=== PATIENT | female | born 1990 | race Caucasian/White ===

== ENCOUNTER 2020-03-25 09:05 | Observation (INO) | payer BC, OTHER ==
[2020-03-25] MEDS ORDERED: Sodium Chloride 0.9% 10 ML Syringe FLUSH PRN (09:21)
[2020-03-25] MEDS ORDERED: Sodium Chloride 0.9% 2.5 ML Syringe FLUSH PRN (09:21)
[2020-03-25] MEDS ORDERED: Sodium Chloride 0.9% 10 ML SDV IV PRN (09:21)
[2020-03-25] MEDS ORDERED: Aspirin 81 MG Tab.Chew PO ONE (09:21)
--- NOTE | 2020-03-25 09:21 | EDM.PDOC ---
ED HPI GENERAL MEDICAL PROBLEM - General Chief Complaint: Neuro Symptoms/Deficits Stated Complaint: STOKE CODE Time Seen by Provider: 03/25/20 09:20 Source of Information: Reports: Patient History Limitations: Reports: No Limitations - History of Present Illness INITIAL COMMENTS - FREE TEXT/NARRATIVE: There is a very pleasant 30-year-old female with a past medical history of hyp othyroidism on levothyroxine and anxiety presenting with concern for stroke symptoms. Around 8:10 AM this morning, the patient states that she tried to get up off the couch and felt like she was falling to the right side and had to brace herself because her balance was severely affected. She called her spouse and talk to him on the phone and he stated that it sounded like she was not speaking clearly. The patient states that when this was occurring, she felt like her lip was numb and it was difficult to form words. These symptoms improved and essentially subsided before she arrived in the emergency department. Here in the ER, she complains of feeling shaky but otherwise denies any present facial or extremity numbness or weakness, headache, visual disturbance, trouble speaking or swallowing, or problems with coordination. No history of recent head trauma. Denies history of CVA or TIA, atrial fibrillation, hypertension, hyperlipidemia, or diabetes mellitus. No anticoagulant or antiplatelet medication usage. Patient was cleared as a stroke code in triage and was immediately roomed when she arrived to the ER. ROS: A 10-point review of systems was negative, except as noted in the HPI (or in the ROS section of this note). Past medical history: Reviewed, no additional pertinent history. Surgical history: Reviewed in system, no additional pertinent history. Social history: Reviewed in system, no additional pertinent history. Family history: Reviewed in system, no additional pertinent history. PHYSICAL EXAM Vital signs reviewed. Nursing notes reviewed. Constitutional: Awake, alert, non-distressed. Head: Normocephalic, atraumatic. Eyes: EOMI, conjunctiva normal, no discharge, no scleral icterus. Pupils 3 mm bilaterally. Ears, Nose, Throat: External ears and nose normal, moist oral mucosa. Cardiovascular: 2+ radial pulse, capillary refill less than 2 seconds. Pulmonary: normal work of breathing, no accessory muscle use. Abdomen/GI: Soft, nontender, nondistended, no guarding or rigidity, no masses. Musculoskeletal: No deformities. Integumentary: Appropriate color for ethnicity, warm, dry, no pallor or jaundice, no rash. Neurologic: Awake, alert, and oriented x3. Cranial nerves II through XII intact. No facial droop or dysarthria. No temporal artery tenderness. Supple neck with normal range of motion. No pronator drift. Normal [id number]. Patient does have impaired coordination with her right lower extremity when asked to test [id number]. No dysdiadochokinesia. 5/5 strength in all extremities. Sensation intact to light touch x4. Negative Romberg. Normal gait. Normal visual kohli, no field cuts. Able to sit, stand, and ambulate without assistance. Psychiatric: Appropriate mood and affect, normal thought process. - Related Data Allergies Allergy/AdvReac Type Severity Reaction Status Date / Time No Known Allergies Allergy Verified 03/25/20 09:40 Home Meds: Home Meds ClonazePAM [KlonoPIN] 0.5 mg PO 03/25/20 [History] Levothyroxine [Synthroid] 03/25/20 [History] traZODone HCl [Trazodone HCl] 03/25/20 [History] ED ROS GENERAL - Review of Systems Review Of Systems: See Below ED EXAM, NEURO - Physical Exam Exam: See Below EKG INTERPRETATION EKG Interpretation Comments: 12-Lead ECG Interpretation Acquired: 9:30 AM Rhythm: Sinus rhythm Rate: 93 bpm [place]: Normal Intervals: Normal Ectopy: None RV Strain: No obvious RV strain pattern. ST Segments/T-Waves: T wave inversions lead III Acute Ischemic Changes: None apparent Interpretation: No STEMI Course - Vital Signs Text/Narrative:: Patient hemodynamically stable, afebrile, well-appearing, looks nontoxic. Differential diagnosis includes but is not limited to: CVA, TIA, neuropathy, [employer] tumor, intracranial hemorrhage, MS, demyelinating disease, electrolyte disturbance, thyroid disease, neuropathy, etc. 0815: Stroke code cleared from triage, patient was immediately roomed and work- up was started. By my examination, the only deficit I appreciated some clumsiness with the right lower extremity when testing [id number]. Otherwise I see no focal neurologic deficits, her NIH stroke scale is 1. 1101: Nurse performed full NIH stroke scale with a score of 0. By my examination she continues to have some very mild clumsiness with her right lower extremity when testing [id number]. Her laboratory testing is essentially negative. Troponin negative, electrolytes and renal function normal. Cell lines are normal. Radiology reads of her stroke series CTs are negative. Her story is concerning for a TIA at a minimum. She was given full-dose aspirin. I would favor admission to the hospital overnight for further stroke work-up including MRI, neurology consultation, and likely echocardiogram. Patient is agreeable. I spoke with the hospitalist Dr. Toby Cobian who agrees to admit. Last Recorded V/S: Last Vital Signs Temp 36.6 C 03/25/20 09:34 Pulse 96 03/25/20 09:34 Resp 18 03/25/20 09:34 BP 121/79 03/25/20 09:34 Pulse Ox 98 03/25/20 09:34 - Orders/Labs/Meds Orders: Active Orders 24 hr Category Date Time Status Admission Status [Patient Status] [ADT] Stat ADT 03/25/20 10:32 Active Assess Neurological Status [RC] CONTINUOUS Care 03/25/20 09:21 Active Blood Glucose Check, Bedside [RC] STAT Care 03/25/20 09:21 Active Cardiac Monitoring [RC] CONTINUOUS Care 03/25/20 09:21 Active Communication Order [RC] STAT Care 03/25/20 09:21 Active EKG Documentation Completion [RC] STAT Care 03/25/20 09:21 Active Height and Weight [RC] UPON Care 03/25/20 09:21 Active NIH Stroke Scale [RC] STAT Care 03/25/20 09:21 Active Nursing Bedside Swallow Screen [RC] STAT Care 03/25/20 09:21 Active Brain w wo Cont [MR] Urgent Exams 03/25/20 11:33 Ordered Sodium Chloride 0.9% [Normal Saline] Med 03/25/20 09:21 Active 10 ml IV ASDIRECTED PRN Sodium Chloride 0.9% [Saline Flush] Med 03/25/20 09:21 Active 10 ml FLUSH ASDIRECTED PRN Sodium Chloride 0.9% [Saline Flush] Med 03/25/20 09:21 Active 2.5 ml FLUSH ASDIRECTED PRN Peripheral IV Insertion Adult [OM.PC] Stat Oth 03/25/20 09:21 Ordered Peripheral IV Insertion Adult [OM.PC] Stat Ot 03/25/20 09:21 Ordered Medication Orders Sodium Chloride (Saline Flush) 10 ml FLUSH ASDIRECTED PRN PRN Reason: Keep Vein Open Last Admin: 03/25/20 09:56 Dose: 10 ml Documented by: ASHA Sodium Chloride (Saline Flush) 2.5 ml FLUSH ASDIRECTED PRN PRN Reason: Keep Vein Open Last Admin: 03/25/20 09:56 Dose: 2.5 ml Documented by: ASHA Sodium Chloride (Normal Saline) 10 ml IV ASDIRECTED PRN PRN Reason: IV Use Labs: Laboratory Tests 03/25/20 03/25/20 03/25/20 Range/Units 09:10 09:10 09:10 WBC 7.43 (4.0-11.0) K/uL RBC 4.94 (4.30-5.90) M/uL Hgb 14.3 (12.0-16.0) g/dL Hct 42.8 (36.0-46.0) % MCV 86.6 (80.0-98.0) fL MCH 28.9 (27.0-32.0) pg MCHC 33.4 (31.0-37.0) g/dL RDW Std Deviation 41.5 (28.0-62.0) fl RDW Coeff of Tl 13 (11.0-15.0) % Plt Count 239 (150-400) K/uL MPV 8.40 (7.40-12.00) fL Neut % (Auto) 54.8 (48.0-80.0) % Lymph % (Auto) 34.5 (16.0-40.0) % [place] % (Auto) 6.2 (0.0-15.0) % Eos % (Auto) 4.4 (0.0-7.0) % Baso % (Auto) 0.1 (0.0-1.5) % Neut # (Auto) 4.1 (1.4-5.7) K/uL Lymph # (Auto) 2.6 H (0.6-2.4) K/uL [place] # (Auto) 0.5 (0.0-0.8) K/uL Eos # (Auto) 0.3 (0.0-0.7) K/uL Baso # (Auto) 0.0 (0.0-0.1) K/uL Nucleated RBC % 0.0 /100WBC Nucleated RBCs # 0 K/uL INR 1.00 APTT 26.2 (18.6-31.3) SEC Sodium 139 (136-145) mmol/L Potassium 3.6 (3.5-5.1) mmol/L Chloride 103 (98-107) mmol/L Carbon Dioxide 22.9 (21.0-32.0) mmol/L BUN 8 (7.0-18.0) mg/dL Creatinine 0.8 (0.6-1.0) mg/dL Est Cr Clr Drug Dosing 74.53 mL/min Estimated GFR (MDRD) > 60.0 ml/min Glucose 99 (74-106) mg/dL Calcium 9.0 (8.5-10.1) mg/dL Total Bilirubin 0.5 (0.2-1.0) mg/dL AST 14 L (15-37) IU/L ALT 21 (14-63) IU/L Alkaline Phosphatase 96 (46-116) U/L Troponin I < 0.050 (0.000-0.056) ng/mL Total Protein 7.6 (6.4-8.2) g/dL Albumin 3.8 (3.4-5.0) g/dL Globulin 3.8 (2.6-4.0) g/dL Albumin/Globulin Ratio 1.0 (0.9-1.6) HCG, Qual (NEG) SARS-CoV-2 RNA (AYESHA) (NEGATIVE) 03/25/20 03/25/20 Range/Units 09:10 11:12 WBC (4.0-11.0) K/uL RBC (4.30-5.90) M/uL Hgb (12.0-16.0) g/dL Hct (36.0-46.0) % MCV (80.0-98.0) fL MCH (27.0-32.0) pg MCHC (31.0-37.0) g/dL RDW Std Deviation (28.0-62.0) fl RDW Coeff of Tl (11.0-15.0) % Plt Count (150-400) K/uL MPV (7.40-12.00) fL Neut % (Auto) (48.0-80.0) % Lymph % (Auto) (16.0-40.0) % [place] % (Auto) (0.0-15.0) % Eos % (Auto) (0.0-7.0) % Baso % (Auto) (0.0-1.5) % Neut # (Auto) (1.4-5.7) K/uL Lymph # (Auto) (0.6-2.4) K/uL [place] # (Auto) (0.0-0.8) K/uL Eos # (Auto) (0.0-0.7) K/uL Baso # (Auto) (0.0-0.1) K/uL Nucleated RBC % /100WBC Nucleated RBCs # K/uL INR APTT (18.6-31.3) SEC Sodium (136-145) mmol/L Potassium (3.5-5.1) mmol/L Chloride (98-107) mmol/L Carbon Dioxide (21.0-32.0) mmol/L BUN (7.0-18.0) mg/dL Creatinine (0.6-1.0) mg/dL Est Cr Clr Drug Dosing mL/min Estimated GFR (MDRD) ml/min Glucose (74-106) mg/dL Calcium (8.5-10.1) mg/dL Total Bilirubin (0.2-1.0) mg/dL AST (15-37) IU/L ALT (14-63) IU/L Alkaline Phosphatase (46-116) U/L Troponin I (0.000-0.056) ng/mL Total Protein (6.4-8.2) g/dL Albumin (3.4-5.0) g/dL Globulin (2.6-4.0) g/dL Albumin/Globulin Ratio (0.9-1.6) HCG, Qual NEGATIVE (NEG) SARS-CoV-2 RNA (AYESHA) NEGATIVE (NEGATIVE) Meds: Medications Generic Name Dose Route Start Last Admin Trade Name Freq PRN Reason Stop Dose Admin Sodium Chloride 10 ml 03/25/20 09:21 03/25/20 09:56 Saline Flush FLUSH 10 ml ASDIRECTED PRN Administration Keep Vein Open Sodium Chloride 2.5 ml 03/25/20 09:21 03/25/20 09:56 Saline Flush FLUSH 2.5 ml ASDIRECTED PRN Administration Keep Vein Open Sodium Chloride 10 ml 03/25/20 09:21 Normal Saline IV ASDIRECTED PRN IV Use Discontinued Medications Generic Name Dose Route Start Last Admin Trade Name Freq PRN Reason Stop Dose Admin Aspirin 324 mg 03/25/20 09:21 03/25/20 09:55 Aspirin PO 03/25/20 09:22 324 mg ONETIME ONE Administration Gadobenate Dimeglumine 20 ml 03/25/20 13:08 03/25/20 13:09 Multihance IVPUSH 03/25/20 13:09 14 ml ONETIME STA Administration Iopamidol 100 ml 03/25/20 09:44 03/25/20 09:44 Isovue Multipack-370 (76%) IVPUSH 03/25/20 09:45 100 ml ONETIME ONE Administration Departure - Departure Time of Disposition: 10:33 Disposition: Refer to Observation Condition: Good Clinical Impression: Stroke Qualifiers: CVA mechanism: unspecified Qualified Code(s): I63.9 - Cerebral infarction, unspecified - Discharge Information Sepsis Event Note (ED) - Focused Exam Vital Signs: Vital Signs Temp Pulse Resp BP Pulse Ox 03/25/20 09:34 36.6 C 96 18 121/79 98 - My Orders Last 24 Hours: My Active Orders 03/25/20 09:21 Assess Neurological Status [RC] CONTINUOUS Blood Glucose Check, Bedside [RC] STAT Cardiac Monitoring [RC] CONTINUOUS Communication Order [RC] STAT EKG Documentation Completion [RC] STAT Height and Weight [RC] UPON NIH Stroke Scale [RC] STAT Nursing Bedside Swallow Screen [RC] STAT Sodium Chloride 0.9% [Normal Saline] 10 ml IV ASDIRECTED PRN Sodium Chloride 0.9% [Saline Flush] 10 ml FLUSH ASDIRECTED PRN Sodium Chloride 0.9% [Saline Flush] 2.5 ml FLUSH ASDIRECTED PRN Peripheral IV Insertion Adult [OM.PC] Stat Peripheral IV Insertion Adult [OM.PC] Stat 03/25/20 10:32 Admission Status [Patient Status] [ADT] Stat - Assessment/Plan Last 24 Hours: My Active Orders 03/25/20 09:21 Assess Neurological Status [RC] CONTINUOUS Blood Glucose Check, Bedside [RC] STAT Cardiac Monitoring [RC] CONTINUOUS Communication Order [RC] STAT EKG Documentation Completion [RC] STAT Height and Weight [RC] UPON NIH Stroke Scale [RC] STAT Nursing Bedside Swallow Screen [RC] STAT Sodium Chloride 0.9% [Normal Saline] 10 ml IV ASDIRECTED PRN Sodium Chloride 0.9% [Saline Flush] 10 ml FLUSH ASDIRECTED PRN Sodium Chloride 0.9% [Saline Flush] 2.5 ml FLUSH ASDIRECTED PRN Peripheral IV Insertion Adult [OM.PC] Stat Peripheral IV Insertion Adult [OM.PC] Stat 03/25/20 10:32 Admission Status [Patient Status] [ADT] Stat
[2020-03-25] MEDS ORDERED: Iopamidol 755 MG/ML 500 ML Multipack Bottle IVPUSH ONE (09:44)
--- NOTE | 2020-03-25 09:51 | CT ---
INDICATION: Stroke COMPARISON: None TECHNIQUE: CT examination of the head was performed as axial sections without intravenous contrast. Images were obtained from the vertex of the skull through the skull base. Please note that all CT scans at this facility use dose modulation, iterative reconstruction, and/or weight-based dosing when appropriate to reduce radiation dose to as low as reasonably achievable. FINDINGS: The brain shows no sign of mass lesion, mass effect, hemorrhage, or edema. The ventricles and sulci are normal in appearance for the patient`s age. The visualized portions of the orbits are normal in appearance. The osseous structures are normal in their appearance with no sign of abnormality in the skull base or calvarium. IMPRESSION: Normal unenhanced head CT. Please note that all CT scans at this facility use dose modulation, iterative reconstruction, and/or weight-based dosing when appropriate to reduce radiation dose to as low as reasonably achievable. Dictated by Tres Young MD @ Mar 25 2020 9:49AM Signed by Dr. Tres Young @ Mar 25 2020 9:50AM
--- NOTE | 2020-03-25 10:12 | CT ---
INDICATION: Acute stroke. TECHNIQUE: After standard noncontrast head CT, high resolution axial CT images acquired through the head and neck following rapid intravenous administration of iodinated contrast. Multiplanar MIPS of cranial and cervical vasculature performed. FINDINGS: Noncontrast head CT: There is no intracranial hemorrhage or fluid collection. The mcclain-white matter differentiation is maintained. The ventricles are of normal morphology. The basal cisterns are clear. CTA head: There is normal filling of the intracranial vasculature; i.e. there is no large vessel occlusion or intracranial stenosis. There is no cerebral aneurysm or evidence for vascular malformation. CTA neck: There is no carotid or vertebral artery stenosis or dissection. There is an incidental multinodular thyroid gland. IMPRESSION: Incidental multinodular thyroid gland. Otherwise unremarkable CT head, CTA head and neck. Nura Lemons MD [employer] [facility] Please note that all CT scans at this facility use dose modulation, iterative reconstruction, and/or weight-based dosing when appropriate to reduce radiation dose to as low as reasonably achievable. Dictated by Nura Lemons MD @ Mar 25 2020 10:52AM Signed by Dr. Nura Lemons @ Mar 25 2020 11:09AM
[2020-03-25 10:14] LABS: BLOOD UREA NITROGEN,BUN 8 mg/dL (7.0-18.0); CARBON DIOXIDE,CO2 22.9 mmol/L (21.0-32.0); CHLORIDE,CL 103 mmol/L (98-107); GLUCOSE RANDOM 99 mg/dL (74-106); POTASSIUM,K 3.6 mmol/L (3.5-5.1); SODIUM,NA 139 mmol/L (136-145)
--- NOTE | 2020-03-25 13:01 | PCM.HP.2 ---
H&P History of Present Illness - General Date of Service: 03/25/20 Admit Problem/Dx: Admission Diagnosis/Problem Admission Diagnosis/Problem CVA, Cerebrovascular accident Source of Information: Patient, Old Records (clinic) History Limitations: Reports: No Limitations - History of Present Illness Initial Comments - Free Text/Narative: This 30-year-old female with past medical history of hypothyroidism and anxiety presented to the ER today with concerns of right-sided weakness and balance being off. She reports this morning she was try to get up off the couch and felt weak if she was falling to the right. She called her who felt that her speech was not clear and more slurred. She reports during this time she felt like her lip was numb and it was difficult to form words. Upon arriving to the ER symptoms had essentially subsided. ER physician noted some clumsiness with the right leg performing [id number] movements. She reports now shimmering lights in her R peripheral vision and a mild headache that is just starting. She denies any focal neurological deficits no numbness or weakness trouble speaking or swallowing and no troubles with coordination now. Denies any recent head trauma. No chest pain shortness of breath or abdominal pain. No urinary concerns. No diarrhea or constipation. Denies any history of CVA or TIA no history of, atrial fibrillation hypertension or diabetes. reports history of migraines, only has taken Ibuprofen Excedrin for abortive relief. No history of seizures. Typically migraines come around menses, which she had 1 week ago, no timing is abnormal for her regular migraine. Reports mother has had seizures and significant migraine history. In the ER lab work was essentially normal. COVID swab negative head CT done in the ER negative CTA head and neck are also negative for any intracranial abnormalities. CT a of the neck did note a multinodular thyroid. Will need outpatient follow-up for this. EKG SR with no ischemic changes. She will be admitted for observation TIA. - Related Data Allergies/Adverse Reactions: Allergies Allergy/AdvReac Type Severity Reaction Status Date / Time No Known Allergies Allergy Verified 03/25/20 09:40 Home Medications: Home Meds ClonazePAM [KlonoPIN] 0.5 mg PO DAILY PRN 03/25/20 [History] Levothyroxine [Synthroid] 50 mcg PO BTNUNITS 03/25/20 [History] Melatonin 3 mg PO BEDTIME #30 tablet 03/25/20 [Rx] traZODone HCl [Trazodone HCl] 50 mg PO BEDTIME 03/25/20 [History] Past Medical History Respiratory History: Reports: Asthma Psychiatric History: Reports: Anxiety Endocrine/Metabolic History: Reports: Hypothyroidism - Infectious Disease History Infectious Disease History: Reports: Chicken Pox Social & Family History - Family History Family Medical History: Noncontributory Neurological: Reports: Other (See Below) Other Neurological Family History: fibromyalgia Psychiatric: Reports: Anxiety, Bipolar, Depression Oncologic: Reports: Brain, Other (See Below) Other Oncologic Family History: pitituritary gland - Tobacco Use Smoking Status *Q: Never Smoker Second Hand Smoke Exposure: No - Caffeine Use Caffeine Use: Reports: Coffee, Soda, Tea - Recreational Drug Use Recreational Drug Use: No H&P Review of Systems - Review of Systems: Review Of Systems: See Below General: Reports: No Symptoms. Denies: Chills, Malaise, Weakness HEENT: Reports: Visual Changes (shimmering lights) Pulmonary: Reports: No Symptoms. Denies: Shortness of Breath Cardiovascular: Reports: No Symptoms. Denies: Chest Pain, Lightheadedness Gastrointestinal: Reports: Difficulty Swallowing. Denies: Black Stool, Bloody Stool, Nausea, Vomiting Genitourinary: Reports: No Symptoms. Denies: Dysuria, Frequency Skin: Reports: No Symptoms Neurological: Reports: No Symptoms Hematologic/Lymphatic: Reports: No Symptoms Immunologic: Reports: No Symptoms Exam - Exam Exam: See Below - Vital Signs Vital Signs: Last Vital Signs Temp 97.8 F 03/25/20 09:34 Pulse 96 03/25/20 09:34 Resp 18 03/25/20 09:34 BP 121/79 03/25/20 09:34 Pulse Ox 98 03/25/20 09:34 Weight: 71 kg - Exam General: Alert, Oriented, Cooperative HEENT: Conjunctiva Clear, Mucosa Moist & [place], Pupils Equal, Pupils Reactive, PERRLA Neck: Supple, Trachea Midline Lungs: Clear to Auscultation, Normal Respiratory Effort Cardiovascular: Regular Rate, Regular Rhythm GI/Abdominal Exam: Normal Bowel Sounds, Soft, Non-Tender Extremities: Normal Inspection, Normal Range of Motion, Non-Tender, No Pedal Edema Neurological: Cranial Nerves Intact, Reflexes Equal Bilateral, Strength Equal Bilateral, Normal Gait, Normal Speech Neuro Extensive - Mental Status: Alert, Oriented x3, Normal Mood/Affect, Normal Cognition, Memory Intact Neuro Extensive - Motor, Sensory, Reflexes: CN II-XII Intact, Normal Gait Psychiatric: Alert, Normal Affect, Normal Mood - Patient Data Lab Results Last 24 hrs: Laboratory Results - last 24 hr 03/25/20 03/25/20 03/25/20 Range/Units 09:10 09:10 09:10 WBC 7.43 (4.0-11.0) K/uL RBC 4.94 (4.30-5.90) M/uL Hgb 14.3 (12.0-16.0) g/dL Hct 42.8 (36.0-46.0) % MCV 86.6 (80.0-98.0) fL MCH 28.9 (27.0-32.0) pg MCHC 33.4 (31.0-37.0) g/dL RDW Std Deviation 41.5 (28.0-62.0) fl RDW Coeff of Tl 13 (11.0-15.0) % Plt Count 239 (150-400) K/uL MPV 8.40 (7.40-12.00) fL Neut % (Auto) 54.8 (48.0-80.0) % Lymph % (Auto) 34.5 (16.0-40.0) % Long % (Auto) 6.2 (0.0-15.0) % Eos % (Auto) 4.4 (0.0-7.0) % Baso % (Auto) 0.1 (0.0-1.5) % Neut # (Auto) 4.1 (1.4-5.7) K/uL Lymph # (Auto) 2.6 H (0.6-2.4) K/uL Long # (Auto) 0.5 (0.0-0.8) K/uL Eos # (Auto) 0.3 (0.0-0.7) K/uL Baso # (Auto) 0.0 (0.0-0.1) K/uL Nucleated RBC % 0.0 /100WBC Nucleated RBCs # 0 K/uL INR 1.00 APTT 26.2 (18.6-31.3) SEC Sodium 139 (136-145) mmol/L Potassium 3.6 (3.5-5.1) mmol/L Chloride 103 (98-107) mmol/L Carbon Dioxide 22.9 (21.0-32.0) mmol/L BUN 8 (7.0-18.0) mg/dL Creatinine 0.8 (0.6-1.0) mg/dL Est Cr Clr Drug Dosing 74.53 mL/min Estimated GFR (MDRD) > 60.0 ml/min Glucose 99 (74-106) mg/dL Calcium 9.0 (8.5-10.1) mg/dL Total Bilirubin 0.5 (0.2-1.0) mg/dL AST 14 L (15-37) IU/L ALT 21 (14-63) IU/L Alkaline Phosphatase 96 (46-116) U/L Troponin I < 0.050 (0.000-0.056) ng/mL Total Protein 7.6 (6.4-8.2) g/dL Albumin 3.8 (3.4-5.0) g/dL Globulin 3.8 (2.6-4.0) g/dL Albumin/Globulin Ratio 1.0 (0.9-1.6) HCG, Qual (NEG) SARS-CoV-2 RNA (AYESHA) (NEGATIVE) 03/25/20 03/25/20 Range/Units 09:10 11:12 WBC (4.0-11.0) K/uL RBC (4.30-5.90) M/uL Hgb (12.0-16.0) g/dL Hct (36.0-46.0) % MCV (80.0-98.0) fL MCH (27.0-32.0) pg MCHC (31.0-37.0) g/dL RDW Std Deviation (28.0-62.0) fl RDW Coeff of Tl (11.0-15.0) % Plt Count (150-400) K/uL MPV (7.40-12.00) fL Neut % (Auto) (48.0-80.0) % Lymph % (Auto) (16.0-40.0) % Long % (Auto) (0.0-15.0) % Eos % (Auto) (0.0-7.0) % Baso % (Auto) (0.0-1.5) % Neut # (Auto) (1.4-5.7) K/uL Lymph # (Auto) (0.6-2.4) K/uL Long # (Auto) (0.0-0.8) K/uL Eos # (Auto) (0.0-0.7) K/uL Baso # (Auto) (0.0-0.1) K/uL Nucleated RBC % /100WBC Nucleated RBCs # K/uL INR APTT (18.6-31.3) SEC Sodium (136-145) mmol/L Potassium (3.5-5.1) mmol/L Chloride (98-107) mmol/L Carbon Dioxide (21.0-32.0) mmol/L BUN (7.0-18.0) mg/dL Creatinine (0.6-1.0) mg/dL Est Cr Clr Drug Dosing mL/min Estimated GFR (MDRD) ml/min Glucose (74-106) mg/dL Calcium (8.5-10.1) mg/dL Total Bilirubin (0.2-1.0) mg/dL AST (15-37) IU/L ALT (14-63) IU/L Alkaline Phosphatase (46-116) U/L Troponin I (0.000-0.056) ng/mL Total Protein (6.4-8.2) g/dL Albumin (3.4-5.0) g/dL Globulin (2.6-4.0) g/dL Albumin/Globulin Ratio (0.9-1.6) HCG, Qual NEGATIVE (NEG) SARS-CoV-2 RNA (AYESHA) NEGATIVE (NEGATIVE) Result Diagrams: 03/25/20 09:10 03/25/20 09:10 Sepsis Event Note - Evaluation Sepsis Screening Result: No Definite Risk - Focused Exam Vital Signs: Vital Signs Temp Pulse Resp BP Pulse Ox 03/25/20 09:34 97.8 F 96 18 121/79 98 - Problem List (1) Complicated migraine SNOMED Code(s): 727288254 ICD Code: G43.109 - MIGRAINE WITH AURA, NOT INTRACTABLE, W/O STATUS MIGRAINOSUS Status: Acute Current Visit: Yes (2) Anxiety SNOMED Code(s): 13091010 ICD Code: F41.9 - ANXIETY DISORDER, UNSPECIFIED Status: Chronic Current V isit: Yes (3) Hypothyroidism SNOMED Code(s): 72044283 ICD Code: E03.9 - HYPOTHYROIDISM, UNSPECIFIED Status: Chronic Current Visit: Yes Problem List Initiated/Reviewed/Updated: Yes Orders Last 24hrs: Active Orders 24 hr Category Date Time Status Admission Status [Patient Status] [ADT] Stat ADT 03/25/20 10:32 Active Assess Neurological Status [RC] CONTINUOUS Care 03/25/20 09:21 Active Blood Glucose Check, Bedside [RC] STAT Care 03/25/20 09:21 Active Cardiac Monitoring [RC] CONTINUOUS Care 03/25/20 09:21 Active Communication Order [RC] STAT Care 03/25/20 09:21 Active EKG Documentation Completion [RC] STAT Care 03/25/20 09:21 Active Height and Weight [RC] UPON Care 03/25/20 09:21 Active NIH Stroke Scale [RC] STAT Care 03/25/20 09:21 Active Nursing Bedside Swallow Screen [RC] STAT Care 03/25/20 09:21 Active Regular Diet [DIET] Diet 03/25/20 Dinner Active Brain w wo Cont [MR] Urgent Exams 03/25/20 11:33 Ordered Sodium Chloride 0.9% [Normal Saline] Med 03/25/20 09:21 Active 10 ml IV ASDIRECTED PRN Sodium Chloride 0.9% [Saline Flush] Med 03/25/20 09:21 Active 10 ml FLUSH ASDIRECTED PRN Sodium Chloride 0.9% [Saline Flush] Med 03/25/20 09:21 Active 2.5 ml FLUSH ASDIRECTED PRN Peripheral IV Insertion Adult [OM.PC] Stat Oth 03/25/20 09:21 Ordered Peripheral IV Insertion Adult [OM.PC] Stat Oth 03/25/20 09:21 Ordered Medication Orders Sodium Chloride (Saline Flush) 10 ml FLUSH ASDIRECTED PRN PRN Reason: Keep Vein Open Last Admin: 03/25/20 09:56 Dose: 10 ml Documented by: ASHA Sodium Chloride (Saline Flush) 2.5 ml FLUSH ASDIRECTED PRN PRN Reason: Keep Vein Open Last Admin: 03/25/20 09:56 Dose: 2.5 ml Documented by: ASHA Sodium Chloride (Normal Saline) 10 ml IV ASDIRECTED PRN PRN Reason: IV Use Assessment/Plan Comment:: This 30 year old female admitted with R sided weakness, suspected TIA 1. Complicated Migraine - MRI completed prior to arrival to floor, no CVA noted. MRI shows few small punctate foci of T2 prolongation are present in the subcortical white matter, non specific. - Shimmering lights aura and mild headache has started now - Spoke with Dr Weinstein, she will see this evening, suspect complicated migraine - Has hx of migraines, no auras in the past does not take medications. - Tylenol for pain PRN - Hold off on ECHO. CVA unlikely. Dispo: 1 day Discharge Plan: Dr Weinstein was consulted and visited with patient. Agrees with complicated migraine. Recommends melatonin 3 mg. She also recommended Riboflavin, magnesium and CoQ10. She will start with melatonin. She will arrange follow up in 3 weeks to evaluate how she is doing. Patient is eager for discharge. Has mild headache, but no other focal neurological deficits. Will discharge home today. - Mortality Measure Prognosis:: Good
[2020-03-25] MEDS ORDERED: Gadobenate Dimeglumine 529 MG/ML 20 ML SDV IVPUSH STA (13:08)
[2020-03-25] MEDS ORDERED: Ondansetron 4 MG/2 ML SDV IVPUSH PRN (13:30)
[2020-03-25] MEDS ORDERED: Docusate Sodium 100 MG Cap PO PRN (13:30)
[2020-03-25] MEDS ORDERED: Acetaminophen 325 MG Tab PO PRN (13:30)
--- NOTE | 2020-03-25 14:03 | MR ---
Indication: TIA/CVA Technique: Noncontrast sagittal T1, axial FLAIR, T2 turbo spine echo, and diffusion weighted images. Supplemental post contrast T1 weighted axial and coronal sequences are provided after administration of 14 mL gadolinium-based IV contrast. Comparison: CT 03/25/2020 Findings: The ventricles, sulci and gyri are normal size, shape and contour for age. The midline structures are centrally located with no evidence of shift. There are no suspicious intra or extra-axial fluid collections. No evidence of restricted diffusion to suggest acute ischemia. A few small discrete foci of T2 prolongation are present in the subcortical white matter, nonspecific but most commonly noted in the setting of migraines, hypertension, diabetes, or collagen vascular disease. Expected flow voids in the cavernous carotids and basilar artery. No abnormal contrast enhancement involving the brain parenchyma, meninges, calvarium or skull base. Mild membrane thickening in the paranasal sinuses. Impression: No evidence of acute intracranial abnormality. A few small punctate foci of T2 prolongation are present in the subcortical white matter, nonspecific but most commonly noted in the setting of migraines, hypertension, diabetes, or collagen vascular disease. Dictated by Manolo Munoz MD @ Mar 25 2020 1:56PM Signed by Dr. Manolo Munoz @ Mar 25 2020 2:01PM
[2020-03-25 14:13] LABS: HEMOGLOBIN A1C 5.4 % (4.5-6.2)
--- NOTE | 2020-03-25 16:47 | PCM.CONS ---
H&P History of Present Illness - General Date of Service: 03/25/20 Admit Problem/Dx: Admission Diagnosis/Problem Admission Diagnosis/Problem CVA, Cerebrovascular accident - History of Present Illness Initial Comments - Free Text/Narative: This morning she was sitting on the couch and when she got up to take her dog out, she was unsteady and her speech was abnormal. She called her who noted stuttering. By the time she got to the ED, her speech improved, but she was noted to have right sided clumsiness, which has since resolved. She had shimmery vision for 5-10 minutes that has resolved. She has developed a headache typical of her migraine, improved to a 2 with Tylenol. In the last 2-3 days, she has felt anxious for no reason. She has baseline anxiety, but it had been controlled prior to a couple days ago. She has had a history of migraines since adolescence. She gets headaches about 1-2x/week for which she takes ibuprofen. They are typically left sided extending behind her left eye to left side of the neck with throbbing. 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 She has chronic photophobia that is worse with migraines. Occasionally, she gets severe headaches with photophobia and phonophobia that are disabling enough that she lies down in a dark room. Excedrin migraine helps. She has insomnia for which she takes trazdone. - Related Data Allergies/Adverse Reactions: Allergies Allergy/AdvReac Type Severity Reaction Status Date / Time No Known Allergies Allergy Verified 03/25/20 09:40 Home Medications: Home Meds ClonazePAM [KlonoPIN] 0.5 mg PO DAILY PRN 03/25/20 [History] Levothyroxine [Synthroid] 50 mcg PO BTNUNITS 03/25/20 [History] Melatonin 3 mg PO BEDTIME #30 tablet 03/25/20 [Rx] traZODone HCl [Trazodone HCl] 50 mg PO BEDTIME 03/25/20 [History] Past Medical History Respiratory History: Reports: Asthma Psychiatric History: Reports: Anxiety Endocrine/Metabolic History: Reports: Hypothyroidism - Infectious Disease History Infectious Disease History: Reports: Chicken Pox Social & Family History - Family History Family Medical History: Noncontributory (Father with TIAs, limited details) Neurological: Reports: Other (See Below) Other Neurological Family History: fibromyalgia Psychiatric: Reports: Anxiety, Bipolar, Depression Oncologic: Reports: Brain, Other (See Below) Other Oncologic Family History: pitituritary gland - Tobacco Use Smoking Status *Q: Never Smoker Second Hand Smoke Exposure: No - Caffeine Use Caffeine Use: Reports: Coffee, Soda, Tea - Recreational Drug Use Recreational Drug Use: No H&P Review of Systems - Review of Systems: Review Of Systems: Comprehensive ROS is negative, except as noted in HPI. Exam - Exam Exam: See Below - Vital Signs Vital Signs: Last Vital Signs Temp 36.5 C 03/25/20 14:00 Pulse 96 03/25/20 14:00 Resp 18 03/25/20 14:00 BP 116/74 03/25/20 14:00 Pulse Ox 99 03/25/20 14:00 Weight: 71 kg - Exam Physical Exam Comments:: Constitutional: No acute distress Psychiatric: Mood/Affect: normal/appropriate Neurological: Mental Status: General: Normal activity, good hygiene, appropriate appearance. Level of consciousness: Awake, alert. Orientation: Oriented to person, place, time and situation. Concentration/Attention Span: Normal. Comprehension/Praxis: Able to perform a three step command. Fund of Knowledge/memory: Adequate recent and remote recall. Language: Fluent and articulate without evidence of aphasia or dysarthria. Thought Content: Normal. Insight/Judgement: Normal. Cranial Nerves: Pupils equally round and reactive to light. Visual kohli full to confrontation. Gaze conjugate, EOMI. Sensation intact and symmetric to light touch. Facial strength is full and symmetric. Palate elevates symmetrically. Normal shrug bilaterally. Tongue protrudes midline Motor: Normal tone in all groups. No drift. Power is 5/5 throughout proximal and distal muscles. Sensation: Sensation is intact to temp, may be increased on the right Deep tendon reflexes: Normoactive throughout. Coordination: Finger to nose, heel to cowan and rapid alternating movements are intact. - Patient Data Lab Results Last 24 hrs: Laboratory Results - last 24 hr 03/25/20 03/25/20 03/25/20 Range/Units 09:10 09:10 09:10 WBC 7.43 (4.0-11.0) K/uL RBC 4.94 (4.30-5.90) M/uL Hgb 14.3 (12.0-16.0) g/dL Hct 42.8 (36.0-46.0) % MCV 86.6 (80.0-98.0) fL MCH 28.9 (27.0-32.0) pg MCHC 33.4 (31.0-37.0) g/dL RDW Std Deviation 41.5 (28.0-62.0) fl RDW Coeff of Tl 13 (11.0-15.0) % Plt Count 239 (150-400) K/uL MPV 8.40 (7.40-12.00) fL Neut % (Auto) 54.8 (48.0-80.0) % Lymph % (Auto) 34.5 (16.0-40.0) % [place] % (Auto) 6.2 (0.0-15.0) % Eos % (Auto) 4.4 (0.0-7.0) % Baso % (Auto) 0.1 (0.0-1.5) % Neut # (Auto) 4.1 (1.4-5.7) K/uL Lymph # (Auto) 2.6 H (0.6-2.4) K/uL [place] # (Auto) 0.5 (0.0-0.8) K/uL Eos # (Auto) 0.3 (0.0-0.7) K/uL Baso # (Auto) 0.0 (0.0-0.1) K/uL Nucleated RBC % 0.0 /100WBC Nucleated RBCs # 0 K/uL INR 1.00 APTT 26.2 (18.6-31.3) SEC Sodium 139 (136-145) mmol/L Potassium 3.6 (3.5-5.1) mmol/L Chloride 103 (98-107) mmol/L Carbon Dioxide 22.9 (21.0-32.0) mmol/L BUN 8 (7.0-18.0) mg/dL Creatinine 0.8 (0.6-1.0) mg/dL Est Cr Clr Drug Dosing 74.53 mL/min Estimated GFR (MDRD) > 60.0 ml/min Glucose 99 (74-106) mg/dL Hemoglobin A1c (4.5-6.2) % Calcium 9.0 (8.5-10.1) mg/dL Total Bilirubin 0.5 (0.2-1.0) mg/dL AST 14 L (15-37) IU/L ALT 21 (14-63) IU/L Alkaline Phosphatase 96 (46-116) U/L Troponin I < 0.050 (0.000-0.056) ng/mL Total Protein 7.6 (6.4-8.2) g/dL Albumin 3.8 (3.4-5.0) g/dL Globulin 3.8 (2.6-4.0) g/dL Albumin/Globulin Ratio 1.0 (0.9-1.6) TSH 3rd Generation (0.36-3.74) uIU/mL HCG, Qual (NEG) SARS-CoV-2 RNA (AYESHA) (NEGATIVE) 03/25/20 03/25/20 03/25/20 Range/Units 09:10 09:10 09:10 WBC (4.0-11.0) K/uL RBC (4.30-5.90) M/uL Hgb (12.0-16.0) g/dL Hct (36.0-46.0) % MCV (80.0-98.0) fL MCH (27.0-32.0) pg MCHC (31.0-37.0) g/dL RDW Std Deviation (28.0-62.0) fl RDW Coeff of Tl (11.0-15.0) % Plt Count (150-400) K/uL MPV (7.40-12.00) fL Neut % (Auto) (48.0-80.0) % Lymph % (Auto) (16.0-40.0) % [place] % (Auto) (0.0-15.0) % Eos % (Auto) (0.0-7.0) % Baso % (Auto) (0.0-1.5) % Neut # (Auto) (1.4-5.7) K/uL Lymph # (Auto) (0.6-2.4) K/uL [place] # (Auto) (0.0-0.8) K/uL Eos # (Auto) (0.0-0.7) K/uL Baso # (Auto) (0.0-0.1) K/uL Nucleated RBC % /100WBC Nucleated RBCs # K/uL INR APTT (18.6-31.3) SEC Sodium (136-145) mmol/L Potassium (3.5-5.1) mmol/L Chloride (98-107) mmol/L Carbon Dioxide (21.0-32.0) mmol/L BUN (7.0-18.0) mg/dL Creatinine (0.6-1.0) mg/dL Est Cr Clr Drug Dosing mL/min Estimated GFR (MDRD) ml/min Glucose (74-106) mg/dL Hemoglobin A1c 5.4 (4.5-6.2) % Calcium (8.5-10.1) mg/dL Total Bilirubin (0.2-1.0) mg/dL AST (15-37) IU/L ALT (14-63) IU/L Alkaline Phosphatase (46-116) U/L Troponin I (0.000-0.056) ng/mL Total Protein (6.4-8.2) g/dL Albumin (3.4-5.0) g/dL Globulin (2.6-4.0) g/dL Albumin/Globulin Ratio (0.9-1.6) TSH 3rd Generation 2.90 (0.36-3.74) uIU/mL HCG, Qual NEGATIVE (NEG) SARS-CoV-2 RNA (AYESHA) (NEGATIVE) 03/25/20 Range/Units 11:12 WBC (4.0-11.0) K/uL RBC (4.30-5.90) M/uL Hgb (12.0-16.0) g/dL Hct (36.0-46.0) % MCV (80.0-98.0) fL MCH (27.0-32.0) pg MCHC (31.0-37.0) g/dL RDW Std Deviation (28.0-62.0) fl RDW Coeff of Tl (11.0-15.0) % Plt Count (150-400) K/uL MPV (7.40-12.00) fL Neut % (Auto) (48.0-80.0) % Lymph % (Auto) (16.0-40.0) % [place] % (Auto) (0.0-15.0) % Eos % (Auto) (0.0-7.0) % Baso % (Auto) (0.0-1.5) % Neut # (Auto) (1.4-5.7) K/uL Lymph # (Auto) (0.6-2.4) K/uL [place] # (Auto) (0.0-0.8) K/uL Eos # (Auto) (0.0-0.7) K/uL Baso # (Auto) (0.0-0.1) K/uL Nucleated RBC % /100WBC Nucleated RBCs # K/uL INR APTT (18.6-31.3) SEC Sodium (136-145) mmol/L Potassium (3.5-5.1) mmol/L Chloride (98-107) mmol/L Carbon Dioxide (21.0-32.0) mmol/L BUN (7.0-18.0) mg/dL Creatinine (0.6-1.0) mg/dL Est Cr Clr Drug Dosing mL/min Estimated GFR (MDRD) ml/min Glucose (74-106) mg/dL Hemoglobin A1c (4.5-6.2) % Calcium (8.5-10.1) mg/dL Total Bilirubin (0.2-1.0) mg/dL AST (15-37) IU/L ALT (14-63) IU/L Alkaline Phosphatase (46-116) U/L Troponin I (0.000-0.056) ng/mL Total Protein (6.4-8.2) g/dL Albumin (3.4-5.0) g/dL Globulin (2.6-4.0) g/dL Albumin/Globulin Ratio (0.9-1.6) TSH 3rd Generation (0.36-3.74) uIU/mL HCG, Qual (NEG) SARS-CoV-2 RNA (AYESHA) NEGATIVE (NEGATIVE) Result Diagrams: 03/25/20 09:10 03/25/20 09:10 Aaron Results Last 24 hrs: CTA showed no significant stenosis MRI brain showed scattered T2 hyperintense foci, nonspecific, may be seen in people with migraines Sepsis Event Note - Evaluation Sepsis Screening Result: No Definite Risk - Focused Exam Vital Signs: Vital Signs Temp Pulse Resp BP Pulse Ox 03/25/20 14:00 36.5 C 96 18 116/74 99 03/25/20 09:34 36.6 C 96 18 121/79 98 Consult PN Assessment/Plan Procedures: Procedures X-RAY EXAM L-S SPINE 2/3 VWS (11/03/19) (1) Complicated migraine SNOMED Code(s): 223977664 Code(s): G43.109 - MIGRAINE WITH AURA, NOT INTRACTABLE, W/O STATUS MIGRAINOSUS Current Visit: Yes Problem List Initiated/Reviewed/Updated: Yes My Orders Last 24 Hours: Impression: Transient right sided weakness, language impairment, sensory changes that resolved and was followed by typical headache/migraine consistent with migraine with aura. MRI brain showed nonspecific white matter changes, no acute stroke. Plan: Start melatonin 3 mg qhs for migraines and insomnia. Discussed alternative tucker pplement Mg, Co10, riboflavin f/u 3 weeks, consider alternative prophy strategies if headaches not improved Excedrin migraine prn
== END 2020-03-25 17:30 | disposition home or self-care (01) ==
LOC: MW.ED 09:05 → MW.MS 12:14
PROVIDERS: ADMIT Internal Medicine; ATTEND Internal Medicine
DX: R53.1 Weakness (principal); E03.9 Hypothyroidism, unspecified; F41.9 Anxiety disorder, unspecified; F32.9 Major depressive disorder, single episode, unspecified; Z79.899 Other long term (current) drug therapy; Z79.890 Hormone replacement therapy; G43.109 Migraine with aura, not intractable, without status migrainosus; Z20.828 Contact with and (suspected) exposure to other viral communicable diseases
CPT/HCPCS: 36415; 70450; 70496; 70498; 70553; 80053; 83036; 84443; 84484; 84703; 85025; 85610; 85730; 87635; 93005; 97161; 99285; A9270; A9577; G0378; Q9967; 99283; U0002

== ENCOUNTER 2023-03-09 19:26 | Emergency (ER) | payer BC, OTHER ==
[2023-03-09] MEDS ORDERED: Sodium Chloride 0.9% 1,000 ML IV ONE (19:36)
[2023-03-09] MEDS ORDERED: Morphine 4 MG/ML Syringe IVPUSH ONE (19:37)
[2023-03-09] MEDS ORDERED: Ondansetron 4 MG/2 ML SDV IVPUSH ONE (19:37)
[2023-03-09 20:48] LABS: HEMATOCRIT 42.2 % (36.0-46.0); HEMOGLOBIN 14.8 g/dL (12.0-16.0); LYMPHOCYTES ABSOLUTE AUTO 1.1 K/uL (0.6-2.4); LYMPHOCYTES PERCENT AUTO 13.6 % (16.0-40.0); MEAN CORPUSCULAR HEMOGLOBIN 29.6 pg (27.0-32.0); MEAN CORPUSCULAR HGB CONC 35.1 g/dL (31.0-37.0); MEAN CORPUSCULAR VOLUME 84.4 fL (80.0-98.0); MONOCYTES PERCENT AUTO 0.2 % (0.0-15.0); NEUTROPHILS PERCENT AUTO 86.2 % (48.0-80.0); NRBC ABSOLUTE 0 K/uL; PLATELET COUNT,PLT 255 K/uL (150-400); WHITE BLOOD CELL COUNT,WBC 8.15 K/uL (4.0-11.0)
[2023-03-09 21:17] LABS: A/G RATIO 1.2 (0.9-1.6); ALBUMIN 4.5 g/dL (3.4-5.0); BILIRUBIN TOTAL 0.5 mg/dL (0.2-1.0); CALCIUM 9.2 mg/dL (8.5-10.1); CARBON DIOXIDE,CO2 23.6 mmol/L (21.0-32.0); CREATININE 0.9 mg/dL (0.6-1.0); EST CRCL DRUG DOSING (CG) 64.46 mL/min; PROTEIN TOTAL,TP 8.4 g/dL (6.4-8.2)
[2023-03-09 21:33] LABS: APPEARANCE,URINE CLEAR; BILIRUBIN,URINE NEGATIVE (NEGATIVE); COLOR,URINE YELLOW; GLUCOSE,URINE NEGATIVE (NEGATIVE); KETONES,URINE NEGATIVE (NEGATIVE); LEUKOCYTE ESTERASE,URINE NEGATIVE (NEGATIVE); NITRITE,URINE NEGATIVE (NEGATIVE); OCCULT BLOOD,URINE NEGATIVE (NEGATIVE); PH,URINE 7.5 (5.0-8.0); PROTEIN,URINE NEGATIVE (NEGATIVE); UROBILINOGEN,URINE 0.2 EU/dL (<2.0)
== END 2023-03-09 22:36 | disposition home or self-care (01) ==
LOC: MW.ED 19:26
DX: S39.012A Strain of muscle, fascia and tendon of lower back, initial encounter (principal); J45.909 Unspecified asthma, uncomplicated; E03.9 Hypothyroidism, unspecified; Z79.899 Other long term (current) drug therapy
CPT/HCPCS: 36415; 80053; 81003; 83690; 85025; 93005; 96361; 96374; 96375; 99283; J2270; J2405; J7030; 93010; 99284

== ENCOUNTER 2023-03-30 10:39 | Day surgery (SDC) | payer BC ==
[~2023-03-30 10:39] MED LIST: Lactated Ringers 1,000 ML IV SCH; Sodium Chloride 0.9% 10 ML Syringe FLUSH PRN; Sodium Chloride 0.9% 2.5 ML Syringe FLUSH PRN; Sodium Chloride 0.9% 20 ML SDV IV PRN; propofoL 50 ML ONE
== END 2023-03-30 12:38 | disposition home or self-care (01) ==
LOC: MW.SDS 10:39
PROVIDERS: ATTEND Surgery
DX: K62.1 Rectal polyp (principal); K42.9 Umbilical hernia without obstruction or gangrene; J45.909 Unspecified asthma, uncomplicated; F51.04 Psychophysiologic insomnia; E03.9 Hypothyroidism, unspecified; F32.A Depression, unspecified; E66.9 Obesity, unspecified; F41.0 Panic disorder [episodic paroxysmal anxiety]; Z79.890 Hormone replacement therapy; Z79.51 Long term (current) use of inhaled steroids; Z79.82 Long term (current) use of aspirin; Z80.0 Family history of malignant neoplasm of digestive organs; Z68.32 Body mass index [BMI] 32.0-32.9, adult
CPT/HCPCS: 43239; 45380; 81025; J2704; J7120

== ENCOUNTER 2023-06-10 08:22 | Day surgery (SDC) | payer BC ==
[~2023-06-10 08:22] MED LIST changes: +Albuterol 0.083% 2.5 MG/3 ML Neb Soln NEB PRN; +HYDROmorphone 1 MG/ML Syringe IVPUSH PRN; +Metoclopramide 10 MG/2 ML SDV IVPUSH PRN; +Morphine 2 MG/ML SYRINGE IVPUSH PRN; +Naloxone 0.4 MG/ML SDV IVPUSH PRN; +Ondansetron 4 MG/2 ML SDV IVPUSH PRN; +ceFAZolin 2 GM in Sodium Chloride 0.9% 50 ML IV ONE; +droPERidol 5 MG/2 ML SDV IVPUSH PRN; +fentaNYL 50 MCG/ML SDV IVPUSH PRN; -propofoL 50 ML ONE
[2023-06-10] MEDS ORDERED: Bupivacaine 0.5% 30 ML SDV ONE (08:56)
[2023-06-10] MEDS ORDERED: Ropivacaine 0.5% 5 MG/ML 30 ML SDV ONE (09:06)
[2023-06-10] MEDS ORDERED: EPINEPHrine 1 MG/1 ML Amp ONE (09:06)
[2023-06-10] MEDS ORDERED: Bupivacaine 0.25% 30 ML SDV ONE (09:06)
[2023-06-10] MEDS ORDERED: fentaNYL 100 MCG/2 ML SDV ONE ×2 (09:08→09:54)
[2023-06-10] MEDS ORDERED: Ketorolac 30 MG/ML SDV ONE (09:08)
[2023-06-10] MEDS ORDERED: Dexamethasone 4 MG/ML 5 ML MDV ONE (09:08)
[2023-06-10] MEDS ORDERED: Ondansetron 4 MG/2 ML SDV ONE (09:08)
[2023-06-10] MEDS ORDERED: Propofol 200 MG/20 ML SDV ONE (09:08)
[2023-06-10] MEDS ORDERED: Rocuronium Bromide 50 MG/5 ML Syringe ONE (09:08)
[2023-06-10] MEDS ORDERED: Sugammadex Sodium 200 MG/2 ML VIAL ONE (09:08)
[2023-06-10] MEDS ORDERED: Lidocaine 2% 5 ML SDV ONE (09:08)
[2023-06-10] MEDS ORDERED: ceFAZolin 1 GM Vial ONE (09:41)
== END 2023-06-10 11:54 | disposition home or self-care (01) ==
LOC: MW.SDS 08:22
PROVIDERS: ATTEND Surgery
DX: K82.8 Other specified diseases of gallbladder (principal); F41.9 Anxiety disorder, unspecified; M19.90 Unspecified osteoarthritis, unspecified site; J45.30 Mild persistent asthma, uncomplicated; K81.1 Chronic cholecystitis; M79.18 Myalgia, other site; E66.9 Obesity, unspecified; Z68.29 Body mass index [BMI] 29.0-29.9, adult; Z79.899 Other long term (current) drug therapy; Z79.51 Long term (current) use of inhaled steroids; Z79.890 Hormone replacement therapy
CPT/HCPCS: 47562; 81025; J0131; J0171; J0665; J0690; J1100; J1885; J2405; J2704; J2795; J3010; J3490; J7120

== ENCOUNTER 2023-06-11 12:25 | Emergency (ER) | payer BC ==
[2023-06-11] MEDS ORDERED: Sodium Chloride 0.9% 10 ML Syringe FLUSH PRN (12:29)
[2023-06-11] MEDS ORDERED: Sodium Chloride 0.9% 2.5 ML Syringe FLUSH PRN (12:29)
[2023-06-11 13:23] LABS: BASOPHILS ABSOLUTE AUTO 0.03 K/uL (0.00-0.20); BASOPHILS PERCENT AUTO 0.3 % (0.0-1.0); EOSINOPHILS ABSOLUTE AUTO 0.05 K/uL (0.00-0.45); EOSINOPHILS PERCENT AUTO 0.4 % (0.0-6.0); HEMATOCRIT 35.9 % (37.0-47.0); HEMOGLOBIN 12.8 g/dL (12.0-16.0); IMMATURE GRAN ABSOLUTE AUTO 0.02 K/uL (0.00-0.05); IMMATURE GRAN PERCENT AUTO 0.2 % (0.0-0.4); LYMPHOCYTES ABSOLUTE AUTO 3.72 K/uL (1.00-4.80); LYMPHOCYTES PERCENT AUTO 32.5 % (24.0-44.0); MEAN CORPUSCULAR HGB CONC 35.7 g/dL (32.0-36.0); MEAN CORPUSCULAR VOLUME 84.3 fL (83.0-99.0); MEAN PLATELET VOLUME 8.8 fL (9.4-12.3); MONOCYTES ABSOLUTE AUTO 0.68 K/uL (0.00-0.80); MONOCYTES PERCENT AUTO 5.9 % (0.0-8.0); NEUTROPHILS ABSOLUTE AUTO 6.94 K/uL (1.80-7.70); NEUTROPHILS PERCENT AUTO 60.7 % (41.0-71.0); PLATELET COUNT,PLT 207 K/uL (150-400); RED BLOOD CELL COUNT 4.26 M/uL (4.10-5.30); WHITE BLOOD CELL COUNT,WBC 11.44 K/uL (3.9-11.3)
[2023-06-11 13:50] LABS: A/G RATIO 1.1 (0.9-1.6); ALANINE AMINOTRANSFERASE,ALT 22 IU/L (14-63); ALBUMIN 3.4 g/dL (3.4-5.0); ALKALINE PHOSPHATASE 51 U/L (46-116); ASPARTATE AMNIOTRANSFERASE,AST 20 IU/L (15-37); BILIRUBIN TOTAL 0.4 mg/dL (0.2-1.0); BLOOD UREA NITROGEN,BUN 8 mg/dL (7.0-18.0); CALCIUM 8.9 mg/dL (8.5-10.1); CARBON DIOXIDE,CO2 27.2 mmol/L (21.0-32.0); CHLORIDE,CL 106 mmol/L (98-107); CREATININE 0.9 mg/dL (0.6-1.0); GLUCOSE RANDOM 100 mg/dL (74-106); POTASSIUM,K 3.9 mmol/L (3.5-5.1); PROTEIN TOTAL,TP 6.6 g/dL (6.4-8.2); SODIUM,NA 140 mmol/L (136-145)
[2023-06-11 13:51] LABS: ESTIMATED GFR 87 mL/min (>60)
[2023-06-11 16:28] LABS: BILIRUBIN,URINE NEGATIVE (NEGATIVE); COLOR,URINE YELLOW; GLUCOSE,URINE NEGATIVE (NEGATIVE); KETONES,URINE NEGATIVE (NEGATIVE); LEUKOCYTE ESTERASE,URINE SMALL (NEGATIVE); NITRITE,URINE NEGATIVE (NEGATIVE); OCCULT BLOOD,URINE NEGATIVE (NEGATIVE); PROTEIN,URINE NEGATIVE (NEGATIVE); UROBILINOGEN,URINE 0.2 EU/dL (<2.0)
[2023-06-11] MEDS ORDERED: Morphine 4 MG/ML Syringe IVPUSH ONE ×2 (16:29→17:15)
[2023-06-11] MEDS ORDERED: Ondansetron 4 MG/2 ML SDV IVPUSH ONE (16:29)
[2023-06-11] MEDS ORDERED: Lactated Ringers 1,000 ML IV SCH (16:30)
[2023-06-11 16:38] LABS: APPEARANCE,URINE HAZY
[2023-06-11] MEDS ORDERED: LORazepam 2 MG/ML SDV IVPUSH ONE (16:42)
[2023-06-11 16:49] LABS: BACTERIA,URINE 1+ (NEGATIVE); EPITHELIAL CELLS,URINE FEW (NONE-FEW); RBC,URINE 0-2 (0-2/HPF)
[2023-06-11] MEDS ORDERED: cefTRIAXone 1 GM in Sodium Chloride 0.9% 50 ML IV ONE (17:13)
[2023-06-11] MEDS ORDERED: Sodium Chloride 0.9% 1,000 ML IV ONE (17:15)
== END 2023-06-11 19:32 | disposition home or self-care (01) ==
LOC: MW.ED 12:25
DX: R10.9 Unspecified abdominal pain (principal); R68.83 Chills (without fever)
CPT/HCPCS: 36415; 80053; 81001; 82947; 85025; 87086; 96361; 96365; 96375; 99284; J0696; J2060; J2270; J3490; J7030; J7120

== ENCOUNTER 2023-06-12 13:42 | Emergency (ER) | payer BC ==
[2023-06-12 14:32] LABS: BASOPHILS ABSOLUTE AUTO 0.03 K/uL (0.00-0.20); BASOPHILS PERCENT AUTO 0.4 % (0.0-1.0); EOSINOPHILS ABSOLUTE AUTO 0.25 K/uL (0.00-0.45); EOSINOPHILS PERCENT AUTO 3.2 % (0.0-6.0); HEMATOCRIT 39.7 % (37.0-47.0); HEMOGLOBIN 14.2 g/dL (12.0-16.0); IMMATURE GRAN ABSOLUTE AUTO 0.01 K/uL (0.00-0.05); IMMATURE GRAN PERCENT AUTO 0.1 % (0.0-0.4); LYMPHOCYTES ABSOLUTE AUTO 3.28 K/uL (1.00-4.80); LYMPHOCYTES PERCENT AUTO 41.4 % (24.0-44.0); MEAN CORPUSCULAR HEMOGLOBIN 29.9 pg (28.0-32.0); MEAN CORPUSCULAR HGB CONC 35.8 g/dL (32.0-36.0); MEAN CORPUSCULAR VOLUME 83.6 fL (83.0-99.0); MEAN PLATELET VOLUME 8.5 fL (9.4-12.3); MONOCYTES ABSOLUTE AUTO 0.44 K/uL (0.00-0.80); MONOCYTES PERCENT AUTO 5.5 % (0.0-8.0); NEUTROPHILS ABSOLUTE AUTO 3.92 K/uL (1.80-7.70); NEUTROPHILS PERCENT AUTO 49.4 % (41.0-71.0); PLATELET COUNT,PLT 207 K/uL (150-400); RED BLOOD CELL COUNT 4.75 M/uL (4.10-5.30); WHITE BLOOD CELL COUNT,WBC 7.93 K/uL (3.9-11.3)
[2023-06-12 14:49] LABS: APPEARANCE,URINE CLEAR; BILIRUBIN,URINE NEGATIVE (NEGATIVE); COLOR,URINE YELLOW; GLUCOSE,URINE NEGATIVE (NEGATIVE); KETONES,URINE NEGATIVE (NEGATIVE); LEUKOCYTE ESTERASE,URINE NEGATIVE (NEGATIVE); NITRITE,URINE NEGATIVE (NEGATIVE); OCCULT BLOOD,URINE NEGATIVE (NEGATIVE); PH,URINE 7.5 (5.0-8.0); PROTEIN,URINE NEGATIVE (NEGATIVE); UROBILINOGEN,URINE 0.2 EU/dL (<2.0)
[2023-06-12 15:00] LABS: LACTIC ACID 0.9 mmol/L (0.4-2.0)
[2023-06-12 15:05] LABS: A/G RATIO 1.1 (0.9-1.6); ALANINE AMINOTRANSFERASE,ALT 103 IU/L (14-63); ALBUMIN 3.9 g/dL (3.4-5.0); ALKALINE PHOSPHATASE 89 U/L (46-116); ASPARTATE AMNIOTRANSFERASE,AST 67 IU/L (15-37); BILIRUBIN TOTAL 0.4 mg/dL (0.2-1.0); BLOOD UREA NITROGEN,BUN 7 mg/dL (7.0-18.0); CALCIUM 9.2 mg/dL (8.5-10.1); CARBON DIOXIDE,CO2 27.1 mmol/L (21.0-32.0); CHLORIDE,CL 105 mmol/L (98-107); CREATININE 0.8 mg/dL (0.6-1.0); EST CRCL DRUG DOSING (CG) 72.52 mL/min; GLUCOSE RANDOM 89 mg/dL (74-106); LIPASE 37 U/L (16-77); MAGNESIUM 1.9 mg/dL (1.8-2.4); POTASSIUM,K 3.9 mmol/L (3.5-5.1); PROTEIN TOTAL,TP 7.4 g/dL (6.4-8.2); SODIUM,NA 141 mmol/L (136-145)
[2023-06-12 15:06] LABS: ESTIMATED GFR 100 mL/min (>60); TSH ULTRASENSITIVE < 0.01 uIU/mL (0.36-3.74)
[2023-06-12] MEDS ORDERED: Acetaminophen 325 MG Tab PO ONE (15:24)
[2023-06-12] MEDS ORDERED: LORazepam 2 MG/ML SDV IVPUSH ONE (15:24)
[2023-06-12] MEDS ORDERED: Lactated Ringers 1,000 ML IV SCH (15:30)
[2023-06-12] MEDS ORDERED: Iopamidol 755 MG/ML 500 ML Multipack Bottle IVPUSH STA (15:49)
== END 2023-06-12 18:26 | disposition home or self-care (01) ==
LOC: MW.ED 13:42
DX: R25.1 Tremor, unspecified (principal); E03.9 Hypothyroidism, unspecified; Z86.73 Personal history of transient ischemic attack (TIA), and cerebral infarction without residual deficits; Z79.82 Long term (current) use of aspirin; Z79.899 Other long term (current) drug therapy
CPT/HCPCS: 36415; 71260; 74177; 80053; 81003; 83605; 83690; 83735; 84439; 84443; 85025; 87040; 93005; 96361; 96374; 99284; J2060; J7120; Q9967

== ENCOUNTER 2025-02-07 19:36 | Emergency (ER) | payer BC ==
[2025-02-07] MEDS: Ketorolac 30 MG/ML SDV IM ONE (20:36)
== END 2025-02-07 21:22 | disposition home or self-care (01) ==
LOC: MW.ED 19:36
DX: M77.11 Lateral epicondylitis, right elbow (principal); E03.9 Hypothyroidism, unspecified; J45.909 Unspecified asthma, uncomplicated; Z79.899 Other long term (current) drug therapy; Z79.82 Long term (current) use of aspirin; Z88.8 Allergy status to other drugs, medicaments and biological substances; Z79.890 Hormone replacement therapy
CPT/HCPCS: 73070; 96372; 99284; A9270; J1885; 99283